=== PATIENT | female | born 1955 | race Caucasian/White ===

== ENCOUNTER 2017-11-07 11:22 | Emergency (ER) | payer MEDICAID, SELFPAY ==
[2017-11-07 11:23] VITALS: BP 162/89; PULSE 65; RESP 20; TEMP 36.9; O2SAT 98; BMI 24.4
--- NOTE | 2017-11-07 11:39 | EKG12_ITS ---
Test Reason : SWELLING Blood Pressure : / mmHG Vent. Rate : 063 BPM Atrial Rate : 063 BPM P-R Int : 144 ms QRS Dur : 078 ms QT Int : 392 ms P-R-T Axes : 073 024 040 degrees QTc Int : 401 ms Normal sinus rhythm Normal ECG Confirmed by BLANK RIVAS ([id number]), manuscript editor INESSA WHITEHEAD ([id number] on 11/12/2017 2:38:09 PM Referred By: VERONICA Confirmed By:BLANK RIVAS
--- NOTE | 2017-11-07 11:43 | ED.DCSUM_ITS ---
- ER Visit Summary Date of Service: 11/07/17 Chief Complaint: Leg swelling History of Present Illness: The patient is a 62 F who states that for the past 3 days she has had bilateral leg swelling and pain with walking. The patient also states that she has had shortness of breath. She is a long-term smoker and states that she carries no diagnoses. She has never been told she has COPD or any heart conditions. She takes no medications. She has no primary care physician. She does not drink alcohol. Physical Examination: Afebrile vital signs are stable Gen: Well-nourished well-developed Head: Normocephalic atraumatic Eyes: Perrl EOMI ENT: TMs clear no rhinorrhea moist mucous membranes A cessation of feces Neck: Supple no lymphadenopathy no JVD nontender CVS: Regular rate rhythm no murmurs normal S1-S2 Respiratory: No distress clear to auscultation bilaterally chest nontender Abdomen: Soft nontender nondistended normal bowel sounds no masses Back: Nontender Extremity: 1+ pitting edema of the lower extremity up to the level of the tibial tuberosity there is good capillary refill. Normal color of the extremities without mottling. Skin: Normal color no rash Neuro: alert orientated ?3 CN II-XII intact normal strength sensation reflexes gait cerebellar Psych: Normal affect normal mood Test Results: Creatinine returned significantly elevated 11.2. Potassium 6.4. Hemoglobin is 8.7 platelets are 344. She has a normal MCV. Urinalysis 1+ bacteria 5-10 white cells negative nitrates negative leukocyte esterase. This was sent for culture. Troponin negative. EKG demonstrates no significant T- wave abnormalities. Chest x-ray showed no pleural effusion or CHF. CT the abdomen pelvis without contrast demonstrated bilateral hydronephrosis. There is probable fibrosis retroperitoneal structures resulted in stricture. See radiologist's read for further details Emergency Department Course and Treatment: Ortez catheter was placed. She received IV fluids and clonidine. I do not believe that this is a acute renal failure as evidenced by the EKG. Did not proceed to treat the hyperkalemia as her body is most likely got used to the elevated level. I spoke with Dr. Mireles is on-call for urology here at [facility]. He recommends transfer to tertiary care. [facility] does not have any beds which was the family's first choice. [facility] was her second choice and they have been contacted. She has been accepted by Dr. Federico Lira. Impression: 1. Acute postobstructive renal failure 2. Hyperkalemia 3. Anemia 4. Retroperitoneal fibrosis This note was generated with [employer] dictation software. It may contain incorrect words, spelling, and punctuation that were not noted in review of the chart prior to signing ED Disposition - Plan for ED Patient: Chief Complaint: Lower Extremity Injury Referrals: Care Physician,No Primary [Primary Care Provider] -
[2017-11-07 12:21] LABS: Absolute Lymphocyte Count 1.23 X10^3/ul (0.83-4.51); Absolute Neutrophil Count 7.2 X10^3/uL (2.0-7.7); Basophil# 0.01 X10^3/uL; Basophil% 0.1 % (0-1); Eosinophil# 0.07 X10^3/uL; Eosinophils% 0.8 % (0-5); Hematocrit 27.5 % (37-47); Hemoglobin 8.7 g/dl (12.0-15.0); Lymphocyte # 1.23 X10^3/ul (4.0); Lymphocyte % 13.4 % (19-41); Mean Corp Hgb Conc 31.6 g/gl (32-36); Mean Corpuscular Hgb 26.4 pg (27.0-32.0); Mean Corpuscular Volume 83.3 fL (81-99); Mean Platelet Vol. 10.2 fl (6.2-12.0); Monocyte# 0.67 X10^3/uL; Monocyte% 7.3 % (0-10); Neutrophil # 7.19 X10^3/uL (2.7-7.7); Neutrophil % 78.3 % (47-70); Platelet Count 344 K/mm3 (150-450); RBC Distribution Width CV 14.8 % (11.6-14.6); RBC Distribution Width SD 45.3 fl (35.1-43.9); White Blood Count 9.2 K/mm3 (4.4-11.0)
[2017-11-07 12:24] LABS: POSITIVE COUNT NO; POSITIVE DIFFERENTIAL NO; POSITIVE MORPHOLOGY NO
[2017-11-07 12:41] LABS: ALB/GLOB Ratio 0.6 RATIO (0.9-2.4); AST(SGOT) 12 U/L (15-37); Alanine Aminotransfer ALT/SGPT 24 U/L (13-56); Albumin, Serum 2.8 g/dL (3.2-5.0); Alkaline Phosphatase 103 U/L (45-117); Anion Gap 15 (5-15); BUN 93 mg/dL (7-18); BUN/Creat Ratio 8.3 RATIO (10-20); Calcium,Total 8.3 mg/dL (8.5-10.1); Chloride 111 mmol/L (98-107); EST Glomerular Filtration Rate 4 mL/min (>60); Est Glom Filt Rate - Afr Amer 4 mL/min (>60); Estimated Creatinine Clearance 3.74 ml/min; Globulin 4.6 g/dL (2.2-4.2); Glucose 137 mg/dL (74-106); Potassium 6.4 mmol/L (3.5-5.1); Protein, Total 7.4 g/dL (6.4-8.2); Sodium Level 144 mmol/L (136-145)
[2017-11-07 12:42] VITALS: O2SAT 96
[2017-11-07] MEDS: 0.9% Normal Saline 1,000 ML 999 ML IV (13:17)
[2017-11-07 13:23] VITALS: BP 201/86; PULSE 67; RESP 16; O2SAT 95
[2017-11-07 13:32] LABS: Mucous, Urine 0 SEEN /hpf (<or=2+)
[2017-11-07 13:35] LABS: Color, Urine Yellow (Yellow); Glucose, Dipstick Normal (Normal); Ketone-Dipstick Negative (Negative); Leukocyte Esterase-Dipstick Negative /ul (Negative); Nitrite-Dipstick Negative (Negative); Occult Blood-Urine 10 /ul (Negative); Protein-Dipstick 15 mg/dl (Negative); Specific Gravity, Urine 1.005 (1.002-1.030); Urine Bilirubin Dipstick Negative (Negative); Urine Clarity Clear (Clear); Urine Urobilinogen Normal (Normal)
[2017-11-07 13:45] LABS: Bacteria 1+ /hpf (None Seen); Red Blood Cells-Urine 0-5 SEEN /hpf (0-5); Squamous Epithelial Cells - UA 0-5 SEEN /hpf (5-10); White Blood Cells 5-10 SEEN /hpf (0-5)
[2017-11-07] MEDS: 0.9% Normal Saline 1,000 ML 150 ML IV ×2 (14:55→15:51)
[2017-11-07 15:00] VITALS: BP 185/107; PULSE 64; RESP 19; TEMP 37.7; O2SAT 96
[2017-11-07] MEDS: cloNIDine HCl 0.1 MG Tablet PO (15:51)
[2017-11-07 17:21] VITALS: BP 197/92; PULSE 70; RESP 16; O2SAT 99
[2017-11-07 17:27] LABS: BNP,B-Type NATRIURETIC PEPTIDE 296.9 pg/mL (0-100)
== END 2017-11-07 17:20 | disposition short-term general hospital (02) ==
PROVIDERS: Emergency Provider Emergency Medicine
DX: N17.8 Other acute kidney failure (principal); E87.5 Hyperkalemia; D64.9 Anemia, unspecified; N13.5 Crossing vessel and stricture of ureter without hydronephrosis; F17.200 Nicotine dependence, unspecified, uncomplicated
CPT/HCPCS: 51702; 71046; 74176; 80053; 81001; 83880; 84484; 85025; 93005; 99285; J7030; A4216